=== PATIENT | female | born 1995 | race Caucasian/White ===

== ENCOUNTER → 2024-06-26 12:24 | Outpatient (BNVA) | payer BC, SELFPAY | PROVIDERS: Visit Provider Nurse Practitioner | DX: J02.9 Acute pharyngitis, unspecified (principal); J02.0 Streptococcal pharyngitis; J35.1 Hypertrophy of tonsils | CPT/HCPCS: 87880 ==

== ENCOUNTER → 2025-04-28 13:28 | Outpatient (BNVA) | payer BC, SELFPAY | DX: R39.9 Unspecified symptoms and signs involving the genitourinary system (principal) | CPT/HCPCS: 81000 ==